=== PATIENT | male | born 1975 | race Caucasian/White ===

== ENCOUNTER 2017-09-05 13:33 | Observation (INO) | payer OTHER ==
[2017-09-05 13:46] VITALS: BMI 48.7
--- NOTE | 2017-09-05 13:51 | PDOC ---
History of Present Illness - General Chief Complaint: Chest Pain Stated Complaint: CHEST PAIN Time Seen by Provider: 09/05/17 13:51 - History of Present Illness Initial Comments: 41 year old male with history of HTN, stage IV obesity, and gastric sleeve surgery 3 years prior presenting with chest pain for the past two days. Patient states that he has had sharp chest pain that co-presented with SOB and nausea. The pain is not exertional or pleuritic. He had a stress test 3 year prior, right before his gastric sleeve and it was fine according to him. Denies fevers , chills, vomiting, diarrhea, headache, focal neuro deficits, or other sick symptoms. 09/05/17 17:14 Past History - Past Medical History Allergies/Adverse Reactions: Allergies Allergy/AdvReac Type Severity Reaction Status Date / Time No Known Allergies Allergy Verified 09/05/17 13:42 COPD: No DVT: No Dementia: No HTN: Yes - Surgical History Abdominal Surgery: Yes (GASTRIC SLEEVE) - Immunization History Immunization Up to Date: Yes - Suicide/Smoking/Psychosocial Hx Smoking History: Never smoked Have you smoked in the past 12 months: No Information on smoking cessation initiated: No Hx Alcohol Use: No Drug/Substance Use Hx: No Substance Use Type: None Review of Systems - Review of Systems Constitutional: No: Chills, Diaphoresis, Fever HEENTM: No: Blurred Vision, Tearing Respiratory: No: Cough, Shortness of Breath Cardiac (ROS): Yes: Chest Pain, Chest Tightness. No: Edema, Irregular Heart Rate, Palpitations, Syncope ABD/GI: Yes: Nausea. No: Diarrhea, Vomiting : No: Burning, Dysuria, Discharge Musculoskeletal: No: Back Pain, Joint Swelling Integumentary: No: Lesions, Lumps, Pallor Neurological: No: Headache, Numbness Psychiatric: Yes: Anxiety. No: Depression Endocrine: Yes: Excessive Sweating. No: Intolerance to Heat, Increased Hunger, Increased Thirst *Physical Exam - Vital Signs Last Vital Signs Temp Pulse Resp BP Pulse Ox 98.2 F 89 22 165/115 99 09/05/17 13:42 09/05/17 13:42 09/05/17 13:42 09/05/17 13:42 09/05/17 13:42 - Physical Exam General Appearance: Yes: Nourished, Appropriately Dressed. No: Apparent Distress HEENT: positive: EOMI, DAVY, Normal ENT Inspection, Normal Voice Neck: positive: Trachea midline, Normal Thyroid, Supple. negative: Tender, Rigid Respiratory/Chest: positive: Lungs Clear, Normal Breath Sounds. negative: Chest Tender, Respiratory Distress Cardiovascular: positive: Regular Rhythm, Regular Rate Gastrointestinal/Abdominal: positive: Normal Bowel Sounds, Flat, Soft. negative : Tender Musculoskeletal: positive: Normal Inspection. negative: Decreased Range of Motion Extremity: positive: Normal Capillary Refill, Normal Inspection, Normal Range of Motion. 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, Fully Oriented, Alert, Normal Mood/ Affect, Normal Response, Motor Strength 5/5 Heart Score/ECG Review - History History: Highly suspicious - Electrocardiogram EKG: Normal - Age Age: </= 45 - Risk Factors Risk Factors Heart Score: Yes Hx Hypertension, Yes Positive family hx of cardiac disease, Yes Hx Obesity Based on the list above the patient has:: >/=3 risk factors or Hx atherosclerotic disease - Troponin Troponin: </= normal limit - Score Heart Score - Total: 4 ED Treatment Course - LABORATORY CBC & Chemistry Diagram: 09/05/17 14:13 09/05/17 14:13 Medical Decision Making - Medical Decision Making 41 year old female with chest pain concerning for possible cardiac insult with heart score of 4 given personal and family risk factors. EKG (NSR, [id number], rate 98, QRS 84, and not ST wave changes) and first troponin are negative for signs of acute cardiac insult so will admit for tele-obs, further cardiac workup, and possible stress test under [place] with sign out to Dr. Sanchez. 09/05/17 18:40 *DC/Admit/Observation/Transfer Diagnosis at time of Disposition: Chest pain Qualifiers: Chest pain type: unspecified Qualified Code(s): R07.9 - Chest pain, unspecified - Discharge Dispostion Condition at time of disposition: Stable Admit: Yes - Referrals Referrals: Marie Rendon MD [Primary Care Provider] - - Patient Instructions - Post Discharge Activity
[2017-09-05] MEDS ORDERED: ASPIRIN 81 MG CHEWABLE TABLETS PO ONE (14:13)
[2017-09-05] MEDS ORDERED: ASPIRIN 81 MG CHEWABLE TABLETS ONE (14:18)
--- NOTE | 2017-09-05 14:29 | PDOC ---
Attending Attestation - HPI HPI: 09/05/17 15:40 Patient is a 41M, with PMx of HTN, obesity s/p gastric sleeve, who presents with 3 days of midsternal chest pain, SOB, & dizziness. Patient describes his chest pain as intermittent tightness. He also reports associated nausea. He had a stress test 3 years ago (prior to his gastric sleeve surgery). He takes Diovan 320mg. He denies vomit, vertigo, numbness, tingling or weakness. FHx: Mother- IN and stent in her 50s Surgical Hx: gastric sleeve (lost >100 lbs) Social Hx: denies h/o smoking PCP: Marie Rendon <Tamie Rivas - Last Filed: 09/05/17 15:40> - Resident Resident Name: Adela Ann - ED Attending Attestation I have performed the following: I have examined & evaluated the patient, The case was reviewed & discussed with the resident, I agree w/resident's findings & plan, Exceptions are as noted - Physicial Exam PE: 09/05/17 14:25 awake alert lungs clear bilaterally. heart rrr no mrg abd soft NT ND. obese. ext wwp no edema. nuero awake alert moves all ext - Medical Decision Making 09/05/17 14:26 41 yo male h/o obesity, gastric bypass/ sleeve. here with co chest pain associated sob and lightheaded, nausea. differential IN, CAD, pneumonia, chf, plaln ekg labs troponin, cxr. will give aspirin. pt with stress test 3 years ago. <Michelle Seaman - Last Filed: 09/05/17 17:46> Heart Score/ECG Review - History History: Highly suspicious - Electrocardiogram EKG: Normal - Age Age: </= 45 - Risk Factors Risk Factors Heart Score: Yes Hx Hypertension, Yes Positive family hx of cardiac disease, Yes Hx Obesity Based on the list above the patient has:: >/=3 risk factors or Hx atherosclerotic disease - Troponin Troponin: </= normal limit - Score Heart Score - Total: 4 <Michelle Seaman - Last Filed: 09/05/17 17:46>
[2017-09-05] MEDS ORDERED: VALSARTAN 160 MG TABLET (UD) PO ONE (14:31)
[2017-09-05 14:51] LABS: BASO % 0.6 % (0-2.0); EOS % 1.3 % (0-4.5); HEMATOCRIT 42.2 % (35.4-49); HEMOGLOBIN 14.3 GM/dL (11.7-16.9); LYMPH % 17.4 % (8-40); MCH 29.1 pg (25.7-33.7); MCHC 33.9 g/dl (32.0-35.9); MEAN CELL VOLUME 85.6 fl (80-96); MEAN PLT VOLUME 9.6 fl (7.5-11.1); MONO % 7.9 % (3.8-10.2); NEUT % 72.8 % (42.8-82.8); PLATELET COUNT 116 K/MM3 (134-434); RBC 4.93 M/mm3 (4.00-5.60); RDW 13.3 % (11.9-15.9); WHITE BLOOD COUNT 6.8 K/mm3 (4.0-10.0)
[2017-09-05 15:17] LABS: ALBUMIN 3.5 g/dl (3.4-5.0); ANION GAP 4 (8-16); BILIRUBIN,TOTAL 0.6 mg/dL (0.2-1.0); BLOOD UREA NITROGEN 11 mg/dL (7-18); CALCIUM 8.6 mg/dL (8.5-10.1); CHLORIDE 105 mmol/L (98-107); CO2 29 mmol/L (21-32); CREATININE 0.7 mg/dL (0.7-1.3); GLUCOSE,RANDOM 106 mg/dL (74-106); SGPT/ALT 22 U/L (12-78); SODIUM 138 mmol/L (136-145); TOT PROT 6.9 g/dl (6.4-8.2)
[2017-09-05 15:20] LABS: ALK PHOS 57 U/L (45-117)
[2017-09-05 15:36] LABS: POTASSIUM 4.9 mmol/L (3.5-5.1); SGOT/AST 30 U/L (15-37)
--- NOTE | 2017-09-05 17:59 | HP ---
CHIEF COMPLAINT: PCP: Dr. Julieta Nails HISTORY OF PRESENT ILLNESS: 41 yom with PMhx of morbid obesity (BMI 48), s/p gastric sleeve surgery 3 years ago when had a reportedly negative stress test, also with HTN (not well controlled) was in his USOH till a week ago, when had some nausea with chest tightness, non exertional, transient with self-resolution. Had been doing well since, however over last 2 days has been having intermittent nausea, epigastric 'gas' like symptoms with some 'anxiety' non exertional, this AM had a similar episode so came to the ED. When asked if would term it as chest pressure or tightness, or heaviness, denied the same but kept stating it felt like an ' anxiety attack'. Currently feels better after coming to the ED with symptom resolution. 12 point ROS done, neg for exertional chest pain or dyspnea, fevers, chills, new cough, vomiting, diarrhea, abdominal pain, changes in bowels or urinary symptoms. Does endorse snoring at night. Has lost 120 lbs since his gastric sleeve surgery and intends to lose another 100 lbs. has not been checking his blood pressures, but reports was found with elevated BP in Dr. Rendon's office a week ago. ER course was notable for: (1) ASA 324 mg x1 (2) BP 160s/110s s/p valsartan 320 mg. (3) EKG non concerning Recent Travel: none PAST MEDICAL HISTORY: Morbid obesity s/p gastric sleeve surgery 3 years ago, HTN PAST SURGICAL HISTORY: gastric sleeve surgery as above Social History: Smoking: no tobacco use Alcohol: occasionally, once in a few months Drugs: prior weed use when young, has not used in a long time, no IVDU Family History: Mother with ND in 50s s/p stent, father with HTN. 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 [place] HOME MEDICATIONS: REVIEW OF SYSTEMS CONSTITUTIONAL: Absent: fever, chills, diaphoresis, generalized weakness, malaise, loss of appetite, weight change HEENT: Absent: rhinorrhea, nasal congestion, throat pain, throat swelling, difficulty swallowing, mouth swelling, ear pain, eye pain, visual changes CARDIOVASCULAR: Absent: syncope, palpitations, irregular heart rate, lightheadedness, peripheral edema RESPIRATORY: Absent: cough, shortness of breath, dyspnea with exertion, orthopnea, wheezing, stridor, hemoptysis GASTROINTESTINAL: Absent: abdominal pain, abdominal distension, vomiting, diarrhea, constipation , melena, hematochezia GENITOURINARY: Absent: dysuria, frequency, urgency, hesitancy, hematuria, flank pain, genital pain MUSCULOSKELETAL: Absent: myalgia, arthralgia, joint swelling, back pain, neck pain SKIN: Absent: rash, itching, pallor HEMATOLOGIC/IMMUNOLOGIC: Absent: easy bleeding, easy bruising, lymphadenopathy, frequent infections ENDOCRINE: Absent: unexplained weight gain, unexplained weight loss, heat intolerance, cold intolerance NEUROLOGIC: Absent: headache, focal weakness or paresthesias, dizziness, unsteady gait, seizure, mental status changes, bladder or bowel incontinence PSYCHIATRIC: Absent: depression, suicidal or homicidal ideation, hallucinations. Endorses recent symptoms of anxiety PHYSICAL EXAMINATION Vital Signs - 24 hr 09/05/17 13:42 Temperature 98.2 F Pulse Rate 89 Respiratory 22 Rate Blood Pressure 165/115 O2 Sat by Pulse 99 Oximetry (%) Intake & Output 09/02/17 09/03/17 09/04/17 09/05/17 23:59 23:59 23:59 23:59 Weight 390 lb GENERAL: Awake, alert, and fully oriented, in no acute distress, ambulating back from bathroom, but in no acute distress, BMI 48 HEAD: Normal with no signs of trauma. EYES: Pupils equal, round and reactive to light, extraocular movements intact, sclera anicteric, conjunctiva clear. No lid lag. EARS, NOSE, THROAT: Ears normal, nares patent, oropharynx clear without exudates. Moist mucous membranes. NECK: Soft, supple, no JVD, limited exam given body habitus LUNGS: Breath sounds equal, clear to auscultation bilaterally. No wheezes, and no crackles. No accessory muscle use. HEART: Regular rate and rhythm, normal S1 and S2 without murmur, rub or gallop but limited exam given body habitus ABDOMEN: Soft, nontender, not distended, normoactive bowel sounds, no guarding, no rebound, no masses. MUSCULOSKELETAL: Normal range of motion at all joints. No bony deformities or tenderness. No CVA tenderness. UPPER EXTREMITIES: 2+ pulses, warm, well-perfused. No cyanosis. No clubbing. No peripheral edema. LOWER EXTREMITIES: 2+ pulses, warm, well-perfused. No calf tenderness. No peripheral edema. NEUROLOGICAL: Cranial nerves II-XII intact. Normal speech. Normal gait. PSYCHIATRIC: Cooperative. Good eye contact. Appropriate mood and affect. SKIN: Warm, dry, normal turgor, no rashes or lesions noted, normal capillary refill. Laboratory Results - last 24 hr 09/05/17 09/05/17 14:13 14:13 WBC 6.8 RBC 4.93 Hgb 14.3 Hct 42.2 MCV 85.6 MCH 29.1 MCHC 33.9 RDW 13.3 Plt Count 116 L MPV 9.6 Neutrophils % 72.8 Lymphocytes % 17.4 Monocytes % 7.9 Eosinophils % 1.3 Basophils % 0.6 Sodium 138 Potassium 4.9 Chloride 105 Carbon Dioxide 29 Anion Gap 4 L BUN 11 Creatinine 0.7 Creat Clearance w eGFR > 60 Random Glucose 106 Calcium 8.6 Total Bilirubin 0.6 AST 30 ALT 22 Alkaline Phosphatase 57 Creatine Kinase 98 Troponin I < 0.02 Total Protein 6.9 Albumin 3.5 EKG NSR no acute ST-T changes noted CXR reviewed - no acute process ASSESSMENT/PLAN: 41 yom with morbid obesity, s/p gastric sleeve surgery 3 years ago, HTN, admitted with intermittent non exertional nausea/gas like sympoms/chest tightness and found hypertensive in the ED. -Nausea/"gas" like symptoms/Chest tightness, anginal equivalent vs from hypertensive urgency vs undiagnosed anxiety disorder -Hypertensive urgency -Morbid obesity Plan: Telemetry, cycle CE, Cardiology consult Dr. Leary. 2D echo. Defer stress testing to cardiology. Continue valsartan. HYdralazine prn for SBP > 170. Patient reports getting his lipid profile done recently. WIll not repeat. Advised outpatient sleep study as likely contributing to uncontrolled HTN. Patient agrees. DVTPPX with lovenox Dispo admit to obs, d/c planning in 24-48 hours if w/u non concerning and no new events. Plan discussed patient in detail, all questions answered. Visit type - Emergency Visit Emergency Visit: Yes Care time: The patient presented to the Emergency Department on the above date and was hospitalized for further evaluation of their emergent condition. - New Patient This patient is new to me today: Yes Date on this admission: 09/05/17 - Critical Care Critical Care patient: No Hospitalist Screening - Colonoscopy Questionnaire Colonoscopy Questionnaire: Colonoscopy Questionnaire - Patient: 50 - 75 years old and never had a screening colonoscopy: Unknown History of colon or rectal polyps, or CA: Unknown History of IBD, Crohn's disease or UC: Unknown History of abdominal radiation therapy as a child: Unknown - Relative: 1 with colon or rectal CA, or polyps at age 60 or younger: Unknown Colon or rectal CA diagnosed at age 45 or younger: Unknown Multiple relatives with colon or rectal CA: Unknown - Outcome: Screening Result: Negative Screen
[2017-09-05] MEDS ORDERED: hydrALAZINE HCL 20 MG/ML VIAL IVPUSH PRN (18:02)
[2017-09-06 00:09] VITALS: BP 137/87; PULSE 92; TEMP 97.8
--- NOTE | 2017-09-06 02:52 | DS ---
Physical Exam: SUBJECTIVE: Patient seen and examined, Patient admitted to r/o ACS, 3 troponins negative and patient requesting to be discharged. 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 Patient decided to sign out AMA. OBJECTIVE: Vital Signs Period Temp Pulse Resp BP Sys/Terry Pulse Ox Last 24 Hr 97.8 F-98.2 F 89-95 16-22 122-165/83-115 97-100 PHYSICAL EXAM GENERAL: The patient is awake, alert, and fully oriented, in no acute distress. Morbid obesity HEAD: Normal with no signs of trauma. EYES: PERRL, extraocular movements intact, sclera anicteric, conjunctiva clear. ENT: Ears normal, nares patent, oropharynx clear without exudates, moist mucous membranes. NECK: Trachea midline, full range of motion, supple. LUNGS: Breath sounds equal, clear to auscultation bilaterally, no wheezes, no crackles, no accessory muscle use. HEART: Regular rate and rhythm, S1, S2 without murmur, rub or gallop. ABDOMEN: Soft, nontender, nondistended, normoactive bowel sounds, no guarding, no rebound, no hepatosplenomegaly, no masses. EXTREMITIES: 2+ pulses, warm, well-perfused, no edema. NEUROLOGICAL: Cranial nerves II through XII grossly intact. Normal speech, gait not observed. PSYCH: Normal mood, normal affect. SKIN: Warm, dry, normal turgor, no rashes or lesions noted. LABS Laboratory Results - last 24 hr 09/05/17 09/05/17 09/05/17 14:13 14:13 19:00 WBC 6.8 RBC 4.93 Hgb 14.3 Hct 42.2 MCV 85.6 MCH 29.1 MCHC 33.9 RDW 13.3 Plt Count 116 L MPV 9.6 Neutrophils % 72.8 Lymphocytes % 17.4 Monocytes % 7.9 Eosinophils % 1.3 Basophils % 0.6 Sodium 138 Potassium 4.9 Chloride 105 Carbon Dioxide 29 Anion Gap 4 L BUN 11 Creatinine 0.7 Creat Clearance w eGFR > 60 Random Glucose 106 Calcium 8.6 Total Bilirubin 0.6 AST 30 ALT 22 Alkaline Phosphatase 57 Creatine Kinase 98 51 Troponin I < 0.02 < 0.02 Total Protein 6.9 Albumin 3.5 09/06/17 01:06 WBC RBC Hgb Hct MCV MCH MCHC RDW Plt Count MPV Neutrophils % Lymphocytes % Monocytes % Eosinophils % Basophils % Sodium Potassium Chloride Carbon Dioxide Anion Gap BUN Creatinine Creat Clearance w eGFR Random Glucose Calcium Total Bilirubin AST ALT Alkaline Phosphatase Creatine Kinase 47 Troponin I < 0.02 Total Protein Albumin HOSPITAL COURSE: Date of Admission:09/05/17 Date of Discharge: AMA 09/06/17 Minutes to complete discharge: 20 Discharge Summary Reason For Visit: CHEST PAIN Current Active Problems Chest pain (Acute) Condition: Stable - Instructions Referrals: Marie Rendon MD [Primary Care Provider] -
[2017-09-06] MEDS ORDERED: ENOXAPARIN NA (PORCINE) 40 MG/0.4 ML DISP.SYRIN SQ SCH (10:00)
[2017-09-06] MEDS ORDERED: VALSARTAN 160 MG TABLET (UD) PO SCH (10:00)
--- NOTE | 2017-09-07 12:27 | EKG ---
Test Reason : Blood Pressure : / mmHG Vent. Rate : 098 BPM Atrial Rate : 098 BPM P-R Int : 162 ms QRS Dur : 084 ms QT Int : 358 ms P-R-T Axes : 011 011 012 degrees QTc Int : 457 ms POOR DATA QUALITY, INTERPRETATION MAY BE ADVERSELY AFFECTED NORMAL SINUS RHYTHM POSSIBLE LEFT ATRIAL ENLARGEMENT BORDERLINE ECG NO PREVIOUS ECGS AVAILABLE Confirmed by JULIA ROSS MD ([id number]) on 09/07/2017 12:27:10 PM Referred By: Confirmed By:JULIA ROSS MD
== END 2017-09-06 03:49 | disposition left against medical advice (07) ==
LOC: JER 13:33 → JERBED 17:37
PROVIDERS: ADMIT Family Medicine; ATTEND Family Medicine
DX: R07.9 Chest pain, unspecified (principal); I10 Essential (primary) hypertension; E66.01 Morbid (severe) obesity due to excess calories; Z68.42 Body mass index [BMI] 45.0-49.9, adult; Z98.84 Bariatric surgery status
CPT/HCPCS: 36415; 71046-TC-FY; 80053; 82550; 84484; 85025; 93005; 93010; 99285-25; G0378